=== PATIENT | male | born 1935 | race Caucasian/White ===

== ENCOUNTER → 2020-01-24 | Outpatient (CLI) | payer MEDICARE, OTHER ==
[~2020-01-24] MED LIST: ADVICOR; CAND16 PO; CAND4; CELE100; CELE200 PO; DEXA4 PO; ERGO400 PO; HYDACE5 PO; HYDCHL12.5 PO; LENALIDOMIDE; LEVSOD75 PO; LORA10ER PO; OXYACE5T PO; OXYC10TA19 PO; TRAZ50 PO; UROXATROL; WARF2.5 PO
[2020-01-24 12:33] LABS: Source, Urine Clean Catch
[2020-01-24 14:55] LABS: Bilirubin, Urine Neg (Neg); Blood, Urine 1+ (Neg); Glucose Qualitative, Urine Neg (Neg); Ketones, Urine Neg (Neg); Leukocyte Esterase, Urine Neg (Neg); Nitrite, Urine Neg (Neg); Protein, Urine 1+ (Neg); Specific Gravity, Urine 1.015 (1.003-1.022); Urobilinogen, Urine NORM (Normal)
[2020-01-24 15:01] LABS: Appearance, Urine Cloudy (Clear); Color, Urine Yellow (P-Yellow)
[2020-01-24 15:08] LABS: Amorphous Heavy (0-Heavy); Bacteria Mod /hpf; Red Blood Cells, Urine 0-2 /hpf (0-2); Squamous Epithelial Cells Few /hpf (Few)
== END ==
LOC: LAB 12:32 → LAB SHORT 12:32
PROVIDERS: Internal Medicine
DX: R32 Unspecified urinary incontinence (principal)
CPT/HCPCS: 81001; 87086

== ENCOUNTER → 2021-06-07 | Outpatient (CLI) | payer MEDICARE, OTHER | END | disposition home or self-care (01) | LOC: LAB SHORT 09:02 | DX: D04.39 Carcinoma in situ of skin of other parts of face (principal); D48.5 Neoplasm of uncertain behavior of skin | CPT/HCPCS: 88305 ==

== ENCOUNTER → 2022-04-04 | Outpatient (CLI) | payer MEDICARE, OTHER ==
[~2022-04-04] MED LIST changes: +ELIQUIS2.5 MG PO; +GABA100 PO; +LANOXIN125 MCG PO; +LORA.5 PO; +MAGNESIUM OXID400 M1 PO; +MORP20L PO; +Norco 5-325 Ta1 EACH PO; +OMEP20ER PO; +OXYC10ER PO; +POTA10T PO; +REVLIMID PO; +TRAZ150T57 PO; +ZOCOR20 MG PO
[2022-04-05 13:02] LABS: Source, Urine Clean Catch
[2022-04-05 13:24] LABS: Appearance, Urine Clear (Clear); Bilirubin, Urine Neg (Neg); Blood, Urine Neg (Neg); Color, Urine Yellow (P-Yellow); Glucose Qualitative, Urine Neg (Neg); Ketones, Urine Neg (Neg); Leukocyte Esterase, Urine Neg (Neg); Nitrite, Urine Neg (Neg); Protein, Urine 2+ (Neg); Specific Gravity, Urine 1.025 (1.003-1.022); Urobilinogen, Urine NORM (Normal)
[2022-04-05 13:40] LABS: Calcium Oxalate Crystals Mod /hpf
[2022-04-05 13:41] LABS: White Blood Cells, Urine 0-2 /hpf (0-5)
[2022-04-05 13:42] LABS: Red Blood Cells, Urine Not Seen /hpf (0-2)
[2022-04-05 13:43] LABS: Squamous Epithelial Cells Not Seen /hpf (Few)
[2022-04-05 13:45] LABS: Bacteria Rare /hpf; Hyaline Casts 0-2 /lpf (0-2); Mucus Mod (0-Heavy)
== END | disposition home or self-care (01) ==
LOC: LAB SHORT 18:25
PROVIDERS: Internal Medicine
DX: N39.0 Urinary tract infection, site not specified (principal)
CPT/HCPCS: 81001